=== PATIENT | female | born 1965 | race Caucasian/White ===

== ENCOUNTER 2016-07-26 15:25 | Outpatient (CLI) | payer OTHER ==
--- NOTE | 2016-07-26 16:20 | DIAGNOSTIC IMAGING REPORT ---
PROCEDURE: CT THORAX ABD PELVIS W/O CONT INDICATION: Chronic right flank pain, history of calculi TECHNIQUE: Axial CT images were obtained of the thorax, abdomen, and pelvis with sagittal and coronal reformations. COMPARISON: Abdominal ultrasound 10/12/[address] KUB 02/01/2010 FINDINGS: THORAX: Normal thyroid gland. No axillary, supraclavicular, mediastinal, or hilar adenopathy. No anterior or posterior masses. Normal esophagus without hiatal hernia. Chambers of the heart are normal size. No pericardial effusions. The lungs are clear. The airway is patent and branches normally. No pleural effusions. No suspicious osseous lesions. ABDOMEN: Multiple nonobstructing intrarenal calculi bilaterally, five on the right, and five on the left. The largest is in the right interpolar region and measures about 5 mm. No ureteral calculi. No hydronephrosis. Ill-defined 11 mm hypodensity in the posterior lower pole right renal cortex. Shoddy lymph nodes in the retroperitoneal periaortic region. Similar compared to the prior study. Large amount of retained stool in the ascending and transverse colon. Surgically absent gallbladder. The liver, adrenal glands, spleen, pancreas, retroperitoneal vasculature and ureters appear normal. Venous phleboliths present. No suspicious mass or adenopathy. The stomach and other bowel loops appear normal. No mesenteric inflammation. Intact anterior abdominal wall. No free fluid or free air. PELVIS: No bladder stones. Mild anterior bladder wall irregularity along the serosal surface and slight circumferential thickening. Surgically absent uterus. Infusion device in the anterior left subcutaneous tissues. A catheter wraps around the left lateral and enters the thecal sac at the L3-4 level. Non-visualized appendix. Normal pelvic bowel loops, and colon. Normal pelvic vessels, and lymph nodes. No suspicious adenopathy, soft tissue mass, or free pelvic fluid. Mild degenerative sclerosis at both sacroiliac joints. IMPRESSION: 1. Bilateral nonobstructing urinary calculi, the largest on the right measuring 5 mm. 2. Ill-defined right cortical hypodensity, probably a cyst. Incompletely evaluated on current study, present previously. 3. Large amount of retained stool in the proximal colon. 4. Mild bladder wall thickening and irregularity. This can be chronic due to under distention or acute secondary to cystitis. Correlate clinically. 5. Status post cholecystectomy. 6. Normal chest CT. All CT scans at this facility use dose modulation, iterative reconstruction, and/or weight-based dosing when appropriate to reduce radiation dose to as low as reasonably achievable.
== END 2016-07-26 23:00 | disposition home or self-care (01) ==
LOC: CT SRH 15:25
DX: N20.9 Urinary calculus, unspecified (principal); N28.9 Disorder of kidney and ureter, unspecified; Z90.49 Acquired absence of other specified parts of digestive tract